=== PATIENT | female | born 1935 | race Caucasian/White ===

== ENCOUNTER 2016-12-07 20:31 | Emergency (ER) | payer MEDICARE, BC ==
--- NOTE | 2016-12-07 20:44 | EDM.PDOC ---
ED HPI GENERAL MEDICAL PROBLEM - General Stated Complaint: VIRGEN [id number] Time Seen by Provider: 12/07/16 20:38 Source of Information: Reports: EMS - History of Present Illness INITIAL COMMENTS - FREE TEXT/NARRATIVE: EMS states called to intercept arrived with pt inside the other ambulance lying on right side consc-alert stating she fell off a 3 step stool hitting back of head without LOC c/o pain right hip & ribs hard to breath. Initial ambulance crew state arrived @ scene with pt lying on right side on floor stating she was hanging drapes and fell off landing on right side and hitting her head but no LOC. pt was transfer in position of [address] and pt request to come here instead of the closer [facility]. pt alert c/o pain on right rib & hip denies LOC. - Related Data Allergies Allergy/AdvReac Type Severity Reaction Status Date / Time vancomycin Allergy Severe Anaphylactic Verified 12/07/16 21:21 Shock stainless steel Allergy Severe Rash Uncoded 12/07/16 21:21 Home Meds: Home Meds Estrogens, Conjugated [Premarin Vaginal Crm] 1 gm VAG DAILY 08/08/14 [History] Fluticasone/Salmeterol [Advair 250-50 Diskus] 2 puff INH BID 08/08/14 [History] Hydrochlorothiazide 25 mg PO DAILY 08/08/14 [History] Meloxicam [Meloxicam] 7.5 mg PO DAILY 08/08/14 [History] Metoprolol Tartrate [Lopressor] 25 mg PO DAILY 08/08/14 [History] Potassium Chloride 20 meq PO DAILY 08/08/14 [History] Social & Family History - Tobacco Use Smoking Status *Q: Light Tobacco Smoker Years of Tobacco use: 70 - Alcohol Use Days Per Week of Alcohol Use: 1 Number of Drinks Per Day: 1 Total Drinks Per Week: 1 - Recreational Drug Use Recreational Drug Use: No Review of Systems - Review of Systems Review Of Systems: ROS reveals no pertinent complaints other than HPI. ED EXAM, GENERAL - Physical Exam Exam: See Below Exam Limited By: No Limitations General Appearance: Alert, WD/WN, Mild Distress, Other (rib hip pain) Eye Exam: Bilateral Eye: PERRL (pupils ess ER @ 4mm) Ears: Hearing Grossly Normal Throat/Mouth: Normal Voice, No Airway Compromise Head: Other (occiput haematoma, no O/B) Neck: Other (in collar) Respiratory/Chest: No Respiratory Distress, Rales, Rhonchi, Other (mild tenderness right post rib areas with E/C.). No: No Accessory Muscle Use, Retractions Cardiovascular: Regular Rate, Rhythm ( ) GI/Abdominal: Tender, Other (generalized without local signs) Back Exam: Other (no gross ecchymosis but tender on mid thorax and low back) Extremities: Normal Inspection Neurological: Alert, Oriented, Normal Cognition, No Motor/Sensory Deficits Psychiatric: Normal Affect, Normal Mood Skin Exam: Warm, Dry, Normal Color Lymphatic: No Adenopathy Course - Orders/Labs/Meds Labs: Laboratory Tests 12/07/16 12/07/16 12/07/16 Range/Units 20:40 20:40 20:40 WBC 13.4 H (5.0-10.0) 10^3/uL RBC 3.86 L (4.2-5.4) 10^6/uL Hgb 12.5 (12.0-16.0) g/dL Hct 38.6 (37.0-47.0) % MCV 100.0 (80-100) fL MCH 32.4 (27.0-34.0) pg MCHC 32.4 L (33.0-35.0) g/dL Plt Count 192 (150-450) 10^3/uL Neut % (Auto) 83.6 H (42.2-75.2) % Lymph % (Auto) 8.9 L (20.5-50.1) % [place] % (Auto) 7.1 (2-8) % Eos % (Auto) 0.3 L (1.0-3.0) % Baso % (Auto) 0.1 (0.0-1.0) % PT 12.8 H (9.0-12.0) SEC INR 1.3 H (0.9-1.2) APTT 26.4 (22.0-34.0) SEC Sodium 139 (135-145) mmol/L Potassium 4.5 (3.6-5.0) mmol/L Chloride 101 (101-111) mmol/L Carbon Dioxide 28.0 (21.0-31.0) mmol/L Anion Gap 14.5 BUN 10 (7-18) mg/dL Creatinine 1.0 (0.6-1.3) mg/dL Est Cr Clr Drug Dosing TNP Estimated GFR (MDRD) 53 BUN/Creatinine Ratio 10.00 Glucose 112 H (74-105) mg/dL Calcium 8.4 (8.4-10.2) mg/dl Total Bilirubin 0.8 (0.2-1.0) mg/dL AST 30 (10-42) IU/L ALT 19 (10-60) IU/L Alkaline Phosphatase 67 (42-121) IU/L Troponin I 0.02 (0.00-0.02) ng/ml B-Natriuretic Peptide 198 H (0-100) pg/ml Total Protein 6.3 L (6.7-8.2) g/dl Albumin 3.3 (3.2-5.5) g/dl Globulin 3.0 Albumin/Globulin Ratio 1.10 Urine Color (YELLOW) Urine Appearance (CLEAR) Urine pH (5.0-9.0) Ur Specific [place] (1.005-1.030) Urine Protein (NEGATIVE) Urine Glucose (UA) (NEGATIVE) Urine Ketones (NEGATIVE) mg/dL Urine Occult Blood (NEGATIVE) Urine Nitrite (NEGATIVE) Urine Bilirubin (NEGATIVE) Urine Urobilinogen (0.2-1.0) mg/dL Ur Leukocyte Esterase (NEGATIVE) Urine RBC /HPF Urine WBC (0-5/HPF) /HPF Ur Epithelial Cells /HPF Urine Bacteria (0-FEW/HPF) /HPF 12/07/16 Range/Units 20:45 WBC (5.0-10.0) 10^3/uL RBC (4.2-5.4) 10^6/uL Hgb (12.0-16.0) g/dL Hct (37.0-47.0) % MCV (80-100) fL MCH (27.0-34.0) pg MCHC (33.0-35.0) g/dL Plt Count (150-450) 10^3/uL Neut % (Auto) (42.2-75.2) % Lymph % (Auto) (20.5-50.1) % [place] % (Auto) (2-8) % Eos % (Auto) (1.0-3.0) % Baso % (Auto) (0.0-1.0) % PT (9.0-12.0) SEC INR (0.9-1.2) APTT (22.0-34.0) SEC Sodium (135-145) mmol/L Potassium (3.6-5.0) mmol/L Chloride (101-111) mmol/L Carbon Dioxide (21.0-31.0) mmol/L Anion Gap BUN (7-18) mg/dL Creatinine (0.6-1.3) mg/dL Est Cr Clr Drug Dosing Estimated GFR (MDRD) BUN/Creatinine Ratio Glucose (74-105) mg/dL Calcium (8.4-10.2) mg/dl Total Bilirubin (0.2-1.0) mg/dL AST (10-42) IU/L ALT (10-60) IU/L Alkaline Phosphatase (42-121) IU/L Troponin I (0.00-0.02) ng/ml B-Natriuretic Peptide (0-100) pg/ml Total Protein (6.7-8.2) g/dl Albumin (3.2-5.5) g/dl Globulin Albumin/Globulin Ratio Urine Color Yellow (YELLOW) Urine Appearance Clear (CLEAR) Urine pH 7.0 (5.0-9.0) Ur Specific [place] 1.020 (1.005-1.030) Urine Protein Negative (NEGATIVE) Urine Glucose (UA) Negative (NEGATIVE) Urine Ketones Negative (NEGATIVE) mg/dL Urine Occult Blood Trace-intact H (NEGATIVE) Urine Nitrite Negative (NEGATIVE) Urine Bilirubin Negative (NEGATIVE) Urine Urobilinogen 0.2 (0.2-1.0) mg/dL Ur Leukocyte Esterase Negative (NEGATIVE) Urine RBC 0-5 /HPF Urine WBC 0-5 (0-5/HPF) /HPF Ur Epithelial Cells Rare /HPF Urine Bacteria Occasional (0-FEW/HPF) /HPF Meds: Medications Discontinued Medications Generic Name Dose Route Start Last Admin Trade Name Freq PRN Reason Stop Dose Admin Iopamidol 75 ml 12/07/16 21:30 12/07/16 21:35 Isovue-300 (61%) IVPUSH 12/07/16 21:31 75 ml ONETIME ONE Administration - Re-Assessments/Exams Free Text/Narrative Re-Assessment/Exam: 12/07/16 22:54 results discussed with pt & family and case discussed with Dr Jenkins @ [facility] who kindly accepted pt. Departure - Departure Time of Disposition: 22:54 Disposition: DC/Tfer to Acute Hospital 02 Condition: Fair Clinical Impression: Retroperitoneal hemorrhage Lumbar burst fracture Qualifiers: Encounter type: initial encounter Thoracic compression fracture Qualifiers: Encounter type: initial encounter Fracture type: closed Qualified Code(s): S22.000A - Wedge compression fracture of unspecified thoracic vertebra, initial encounter for closed fracture - Discharge Information Forms: Interfacility Transfer MELLY
[2016-12-07 21:06] LABS: CHLORIDE,CL 101 mmol/L (101-111); SODIUM,NA 139 mmol/L (135-145)
[2016-12-07] MEDS ORDERED: Iopamidol 612 MG/ML 75 ML Bottle IVPUSH ONE (21:30)
[2016-12-08] MEDS ORDERED: Morphine 2 MG/ML Syringe IVPUSH ONE (00:05)
== END 2016-12-08 00:34 ==
LOC: DL.ED 20:31
DX: S22.060A Wedge compression fracture of T7-T8 vertebra, initial encounter for closed fracture (principal); S36.899A Unspecified injury of other intra-abdominal organs, initial encounter; S22.000A Wedge compression fracture of unspecified thoracic vertebra, initial encounter for closed fracture; S32.031A Stable burst fracture of third lumbar vertebra, initial encounter for closed fracture; S32.041A Stable burst fracture of fourth lumbar vertebra, initial encounter for closed fracture; S32.051A Stable burst fracture of fifth lumbar vertebra, initial encounter for closed fracture; S00.03XA Contusion of scalp, initial encounter; F17.200 Nicotine dependence, unspecified, uncomplicated; Z88.1 Allergy status to other antibiotic agents; Z91.09 Other allergy status, other than to drugs and biological substances; Z79.899 Other long term (current) drug therapy; W10.9XXA Fall (on) (from) unspecified stairs and steps, initial encounter
CPT/HCPCS: 36415; 70450; 71010; 71260; 72125; 74177; 80053; 81001; 83880; 84484; 85025; 85610; 85730; 96374; 99285; J2270; Q9967

== ENCOUNTER 2017-11-09 18:31 | Emergency (ER) | payer MEDICARE, BC ==
[2017-11-09 18:42] VITALS: BP 159/95
[2017-11-09] MEDS ORDERED: Ketorolac 30 MG/ML SDV IM ONE ×2 (18:59→20:12)
--- NOTE | 2017-11-09 19:05 | EDM.PDOC ---
ED HPI GENERAL MEDICAL PROBLEM - General Chief Complaint: Upper Extremity Injury/Pain Stated Complaint: HURT WRIST [id number] Time Seen by Provider: 11/09/17 19:01 Source of Information: Reports: Patient History Limitations: Reports: No Limitations - History of Present Illness INITIAL COMMENTS - FREE TEXT/NARRATIVE: woke up with pain in forearm no known forearm, denies numbness only pain when moves it. denies CP/SOB. Left Lower Arm Pain Score (Numeric/FACES): 9 - Related Data Allergies Allergy/AdvReac Type Severity Reaction Status Date / Time vancomycin Allergy Severe Anaphylactic Verified 11/09/17 18:58 Shock doxycycline Allergy Cannot Verified 11/09/17 18:58 Remember stainless steel Allergy Severe Rash Uncoded 11/09/17 18:58 Home Meds: Home Meds Estrogens, Conjugated [Premarin Vaginal Crm] 1 gm VAG DAILY 08/08/14 [History] Fluticasone/Salmeterol [Advair 250-50 Diskus] 2 puff INH BID 08/08/14 [History] Meloxicam 7.5 mg PO DAILY 08/08/14 [History] Metoprolol Tartrate [Lopressor] 25 mg PO DAILY 08/08/14 [History] Potassium Chloride 20 meq PO DAILY 08/08/14 [History] hydroCHLOROthiazide [Hydrochlorothiazide] 25 mg PO DAILY 08/08/14 [History] Dicyclomine [Bentyl] 10 cap PO DAILY 11/09/17 [History] Omeprazole 20 mg PO DAILY 11/09/17 [History] Warfarin Sodium 1 tab PO DAILY 11/09/17 [History] traMADol HCl [Tramadol HCl] 1 tab PO Q6HR PRN MDD 400 11/09/17 [History] Past Medical History HEENT History: Reports: Hard of Hearing Cardiovascular History: Reports: Heart Murmur, Hypertension [employer]PER[employer] History: Reports: Musculoskeletal History: Reports: Fracture - Past Surgical History Other Musculoskeletal Surgeries/Procedures:: bilateral ankle 2011 Social & Family History - Tobacco Use Smoking Status *Q: Current Every Day Smoker Years of Tobacco use: 75 Packs/Tins Daily: 2 - Recreational Drug Use Recreational Drug Use: No Review of Systems - Review of Systems Review Of Systems: ROS reveals no pertinent complaints other than HPI. ED EXAM, GENERAL - Physical Exam Exam: See Below Exam Limited By: No Limitations General Appearance: Alert, WD/WN, Mild Distress, Other (discomfort) Ears: Hearing Grossly Normal Throat/Mouth: Normal Voice, No Airway Compromise Head: Atraumatic Neck: Non-Tender, Full Range of Motion Respiratory/Chest: No Respiratory Distress Cardiovascular: Regular Rate, Rhythm GI/Abdominal: Soft, Non-Tender Extremities: Other (left forearm no gross D/D, tender R/P, [place] wnl, ) Neurological: Alert, Oriented, Normal Cognition, Normal Gait, No Motor/Sensory Deficits Psychiatric: Normal Affect, Normal Mood Skin Exam: Warm, Dry, Normal Color Lymphatic: No Adenopathy Course - Vital Signs Last Recorded V/S: Last Vital Signs Temp 37.6 C 11/09/17 18:41 Pulse 80 11/09/17 18:41 Resp 19 11/09/17 18:52 BP 159/95 H 11/09/17 18:41 Pulse Ox 94 L 11/09/17 18:52 - Orders/Labs/Meds Meds: Medications Discontinued Medications Generic Name Dose Route Start Last Admin Trade Name Humbertoq PRN Reason Stop Dose Admin Ketorolac Tromethamine 15 mg 11/09/17 18:59 11/09/17 19:04 Toradol IM 11/09/17 19:00 15 mg ONETIME ONE Administration Ketorolac Tromethamine 15 mg 11/09/17 20:12 Toradol IM 11/09/17 20:13 ONETIME ONE - Re-Assessments/Exams Free Text/Narrative Re-Assessment/Exam: 11/09/17 20:13 re-exam; s/p IM toradol = much better but didn't last long. 11/09/17 20:48 results discussed with pt. Departure - Departure Time of Disposition: 20:48 Disposition: Home, Self-Care 01 Condition: Good Clinical Impression: Forearm tendonitis - Discharge Information Instructions: Tendinitis, [id number] Forms: ED Department Discharge Additional Instructions: 1) try heat pad to area 2) follow up at clinic
== END 2017-11-09 21:17 | disposition home or self-care (01) ==
LOC: DL.ED 18:31
DX: M77.9 Enthesopathy, unspecified (principal); I10 Essential (primary) hypertension; F17.210 Nicotine dependence, cigarettes, uncomplicated; Z79.01 Long term (current) use of anticoagulants; Z79.899 Other long term (current) drug therapy; Z88.1 Allergy status to other antibiotic agents; Z91.09 Other allergy status, other than to drugs and biological substances
CPT/HCPCS: 73090; 96372; 99283; J1885